=== PATIENT | female | born 1955 | race Caucasian/White ===

== ENCOUNTER → 2019-01-20 | Outpatient (CLI) | payer BC | END | disposition home or self-care (01) | LOC: RAH 09:52 | PROVIDERS: ATTEND Internal Medicine | DX: Z01.811 Encounter for preprocedural respiratory examination (principal); M85.88 Other specified disorders of bone density and structure, other site; M47.819 Spondylosis without myelopathy or radiculopathy, site unspecified | CPT/HCPCS: 71046 ==

== ENCOUNTER → 2020-02-18 | Outpatient (CLI) | payer BC | END | disposition home or self-care (01) | LOC: RAH 11:31 | PROVIDERS: ATTEND Obstetrics & Gynecology | DX: Z12.31 Encounter for screening mammogram for malignant neoplasm of breast (principal); Z98.82 Breast implant status | CPT/HCPCS: 77067 ==

== ENCOUNTER → 2020-05-18 | Outpatient (CLI) | payer BC | END | disposition home or self-care (01) | LOC: RAH 16:07 | PROVIDERS: ATTEND Internal Medicine Critical Care Medicine | DX: Z01.818 Encounter for other preprocedural examination (principal) | CPT/HCPCS: 71046 ==

== ENCOUNTER → 2020-09-23 | Outpatient (CLI) | payer BC | END | disposition home or self-care (01) | LOC: RAH 09:43 | PROVIDERS: ATTEND Internal Medicine | DX: I34.0 Nonrheumatic mitral (valve) insufficiency (principal); E78.00 Pure hypercholesterolemia, unspecified; I10 Essential (primary) hypertension; R55 Syncope and collapse | CPT/HCPCS: 93306; 93356 ==

== ENCOUNTER → 2020-09-23 | Outpatient (CLI) | payer OTHER | END | disposition home or self-care (01) | LOC: RAH 11:38 | PROVIDERS: ATTEND Internal Medicine | DX: Z13.6 Encounter for screening for cardiovascular disorders (principal) | CPT/HCPCS: 75571 ==

== ENCOUNTER → 2020-12-16 | Outpatient (CLI) | payer BC | END | disposition home or self-care (01) | LOC: RAH 12:42 | PROVIDERS: ATTEND Internal Medicine | DX: M51.06 Intervertebral disc disorders with myelopathy, lumbar region (principal); M51.16 Intervertebral disc disorders with radiculopathy, lumbar region; M43.16 Spondylolisthesis, lumbar region; M48.061 Spinal stenosis, lumbar region without neurogenic claudication | CPT/HCPCS: 72148 ==

== ENCOUNTER → 2023-07-11 | Outpatient (CLI) | payer MEDICARE | END | disposition home or self-care (01) | LOC: SHCH 13:00 | PROVIDERS: ATTEND Internal Medicine Cardiovascular Disease | DX: R07.9 Chest pain, unspecified (principal); I10 Essential (primary) hypertension; E11.9 Type 2 diabetes mellitus without complications | CPT/HCPCS: 93306 ==

== ENCOUNTER → 2024-01-30 | Outpatient (CLI) | payer MEDICARE | END | disposition home or self-care (01) | LOC: RAH 09:32 | PROVIDERS: ATTEND Internal Medicine | DX: Z12.31 Encounter for screening mammogram for malignant neoplasm of breast (principal) | CPT/HCPCS: 77067 ==

== ENCOUNTER → 2024-03-12 | Outpatient (CLI) | payer MEDICARE ==
[2024-03-12 14:47] LABS: POTASSIUM 4.4 mmol/L (3.5-5.1)
== END | disposition home or self-care (01) ==
LOC: LAB 13:22
PROVIDERS: ATTEND Internal Medicine Gastroenterology
DX: R10.30 Lower abdominal pain, unspecified (principal)
CPT/HCPCS: 36415; 80048

== ENCOUNTER → 2024-04-03 | Outpatient (CLI) | payer MEDICARE ==
[~2024-04-03] MED LIST: IOHEXOL 350 MG/ML 100ML INFUS..BTL IV ONE
== END | disposition home or self-care (01) ==
LOC: RAH 09:42
PROVIDERS: ATTEND Internal Medicine Gastroenterology
DX: K57.30 Diverticulosis of large intestine without perforation or abscess without bleeding (principal); Z90.49 Acquired absence of other specified parts of digestive tract
CPT/HCPCS: 74177; Q9967

== ENCOUNTER 2025-03-25 07:18 | Observation (INO) | payer MEDICARE ==
[2025-03-24 11:25] VITALS: BP 144/72; PULSE 65; RESP 13; TEMP 97.3
[2025-03-24 11:56] LABS: IMMATURE GRANULOCYTE ABSOLUTE 0.01 K/uL (0-1); NUCLEATED RED BLOOD CELLS 0.0 % (0.0-0.19); PLATELET COUNT (AUTO) 216 K/uL (130-400); RED BLOOD CELL COUNT(AUTO) 4.61 MIL/uL (4.00-5.50); RED CELL DISTRIBUTION WIDTH 14.5 % (11.0-15.5); WHITE BLOOD COUNT (AUTO) 5.9 K/uL (4.8-10.8)
[2025-03-24 12:06] LABS: INR 1.07 (0.85-1.15)
[2025-03-24 12:14] LABS: CREATININE 1.1 mg/dL (0.5-1.0); GLOMERULAR FILTR. RATE CALC 55.0 mL/min (>90); GLUCOSE,RANDOM 96.0 mg/dL (70-105); SODIUM SERUM 145.0 mmol/L (136-145); UREA NITROGEN, BLOOD 15.0 mg/dL (7-18)
--- NOTE | 2025-03-24 12:44 | EKG ---
[facility] Test Date: 2025-03-24 Test Time: 11:11:10 Pat Name: MUSHTAQ CONDE Department: [facility] Room: Gender: F Trouble Shooter: [id number] Requested By: WENDI ODOM Order Number: [id number] Reading MD: Nicole Hutchinson Measurements Intervals [place] Rate: 57 P: 55 NC: 166 QRS: -19 QRSD: 98 T: 25 QT: 441 QTc: 428 Interpretive Statements Sinus rhythm Low voltage, precordial leads No previous ECG available for comparison Electronically Signed On 03-24-2025 16:11:43 CDT by Nicole Hutchinson Please click the below link to view image of tracing.
[2025-03-25] VITALS (24 sets, daily range): BP systolic 119–177; BP diastolic 60–103; PULSE 51–89; RESP 14–20; TEMP 96.8–97.9; O2SAT 94–99
[~2025-03-25] VITALS: Ht 172.7 cm; Wt 82.6 kg
[~2025-03-25 07:18] MED LIST changes: +ATOR40TA69 PO; +CETI10TA57 PO; +CYAN250010 PO; +ESOM40CA66 PO; +FAMO40TA7 PO; -IOHEXOL 350 MG/ML 100ML INFUS..BTL IV ONE; +LEVO50CA5 PO; +METF-444 PO; +MVIT PO; +PREG150C47 PO; +TIRZ7.5P SQ; +VALA100031 PO; +[UNRECOGNIZED DRUG - CODE] PO
[2025-03-25] MEDS: 0.9%NACL 1000ML 1,000 ML IV ONE (07:43)
[2025-03-25] MEDS: FAMOTIDINE 20MG VIAL IV ONE (08:34)
[2025-03-25] MEDS ORDERED: MIDAZOLAM HCL 1 MG/ML 2ML VIAL ONE (09:51)
[2025-03-25] MEDS ORDERED: NEOSTIGMINE METHYLSULFATE 1MG/ML IV ONE (11:48)
[2025-03-25] MEDS ORDERED: GLYCOPYRROLATE 0.2 MG/ML 5 ML VIAL ONE (11:48)
--- NOTE | 2025-03-25 12:06 | OP ---
Operative Note: DATE OF PROCEDURE: 03/25/25 SURGEON: WENDI ODOM MD RESIDENTIAL COUNSELOR: [Please review operative record] ANESTHESIA: [General and local] ANESTHESIOLOGIST/BLANCHING MACHINE OPERATOR: [Please review operative record] PREOPERATIVE DIAGNOSIS: [Diaphragmatic hernia, severe gastroesophageal reflux disease] POSTOPERATIVE DIAGNOSIS: [Same] SYNOPSIS: [3 cm hiatal hernia containing incarcerated cardia. Successfully reduced, primarily repair. Reinforced with the mesh. Anterior partial fund oplication] PROCEDURE: [1. Robotic assisted laparoscopic hiatal hernia repair with mesh reinforcement. 2. Intraoperative EGD. 3. Anterior partial fundoplication] ESTIMATED BLOOD LOSS: [10 cc] INDICATIONS: [69-year-old female with chronic heartburn. Who was found to have a small sized hiatal hernia on EGD and upper GI. Recommendation was given for surgical repair of hiatal hernia with mesh and fundoplication after patient failed to progress with conservative management including dietary changes and m edical therapy. Risks, benefits, alternatives were discussed with the patient. All questions were answered. Patient agreed to proceed with surgical procedure. ] DESCRIPTION OF PROCEDURE: [After appropriate consent was obtained, the patient was transferred the operating room placed in supine position on the operating table. SCDs were placed, preop antibiotics were given. Patient underwent induction of general anesthesia, endotracheal intubation. Patient was then prepped draped in usual sterile fashion. Time-out was performed. Through a left subcostal incision, Veress needle was inserted into the peritoneal cavity. Insufflation was allowed to 12 mmHg. Through an 8 mm infraumbilical incision, laparoscope and trocar were inserted into the peritone al cavity using Optiview. Rest of my trocars were all placed under direct visualization. Veress needle and this vicinity were examined with no signs of injury. Patient was then positioned in the reverse Trendelenburg at 20. Through an epigastric incision, Minh liver retractor was placed in order to retract the left lobe of the liver anteriorly. The da Luis robot was then docked at this time. Abdominal pressure was lowered to 10 mmHg. Upon evaluation of the diaphragmatic hiatus, there was 3 cm diaphragmatic defect containing incarcerated cardia of the stomach. Our dissection began by incising the hepatogastric ligament in a avascular plane. This was followed cephalad towards the diaphragm using a vessel sealer. The hiatal orifice was dissected circumferentially. Right crura was identified and a plane was developed between the right dennis in the right wall of the esophagus. This dissection was accomplished with a combination of both vessel sealer and blunt dissection. On the posterior aspect of the esophageal wall, the left dennis was identified and the dissection was followed towards the left dennis. A few short gastrics were divided in order to fully mobilize the fundus of the stomach. Once the esophagus was fully mobilized, we focused on the intra mediastinal dissection. Again this was accomplished mostly with blunt dissection and very little vessel sealer dissection. Once there was 2 cm of intra-abdominal esophagus, we passed the endoscope through the mouth and into the esophagus and into the stomach. With the endoscope in place, we then proceeded to perform a cruroplasty. This was achieved by approximating the left and right crura on the posterior aspect of the esophagus using two 0 V lock nonabsorbable suture in a running fashion. At the end of the cruroplasty only one instrument was able to pass through the diaphragmatic hiatus. An 8 cm Phasix round mesh with a horseshoe configuration was then used to reinforce the repair. This mesh was sutured in place using 3-0 V lock absorbable suture in a running fashion, and a couple of simple interrupted 2-0 suture. In order to minimize dysphagia, partial anterior fundoplication was performed. The fundus was grasped and moved from left to right anterior to the esophagus. Using 2-0 V lock nonabsorbable suture in a running fashion, the fundus was sutured to the right dennis and diaphragm in order to perform our anterior partial fundoplication. Endoscopy with insufflation revealed no air leak, no stenosis through the GE junction, appropriate reduction of the hiatal hernia, intact wrap. At this time we completed our hiatal hernia repair. The Luis robot was undocked. All instruments and trocars were then removed. Abdomen was deflated. Counts were correct at the end of the case. Skin incisions were closed with 4-0 Monocryl suture. Dermabond was applied over the incision. Patient tolerated the procedure well. Patient was transferred to recovery room in a good condition.] WENDI ODOM MD Mar 25, 2025 12:06
[2025-03-25] MEDS ORDERED: PROCHLORPERAZINE 10MG/2ML INJ IV PRN (12:30)
--- NOTE | 2025-03-25 12:50 | NUR ---
POST OP PT ARRIVED TO THE FLOOR IN STABLE CONDITION, VITAL STABLES. RT NOTIFIED.
[2025-03-25] MEDS: HYDROcod/acetaMINOPHEN 7.5/325 MG 15 ML UDCUP PO PRN (15:59)
[2025-03-25] MEDS: LACTATED RINGERS 1000ML 1,000 ML IV SCH (16:00)
--- NOTE | 2025-03-25 17:48 | NUR ---
Pt is already observed walking unit, self transferring and eating. Pt has eaten twice and denies N/V. Pt reports slight BM and passing of air. Pt reports shoulder pain, Encouraged gait. Provided with heatpacks for pain. Pt denies needs and will DC home no PT intervention required.
[2025-03-25] MEDS: ENOXAPARIN SODIUM 30 MG/0.3 ML SQ SCH (20:27)
[2025-03-25] MEDS: FAMOTIDINE 20MG VIAL IV SCH (20:27)
[2025-03-26] VITALS: BP 139/66; PULSE 62; RESP 20; TEMP 97.9
[2025-03-26 04:00] VITALS: BP 151/71; PULSE 61; RESP 20; TEMP 97.9
[2025-03-26 08:00] VITALS: BP 133/79; PULSE 58; RESP 19; TEMP 98; O2SAT 98
--- NOTE | 2025-03-26 10:27 | NUR ---
DCP:HOME Pt currently lives at home with her Larry Mota [phone]. Pt does not have any DME, home health, or provider services. Pt states that she is able to complete ADLs independently. PCP is Dr. Jason Tony and uses [facility] (short term) and [facility] ([facility]) for any RX needs. At [place] pt will want to go home and family can assist with transportation. Addendum: 03/26/25 at 1029 by PAWAN COLEMAN SS Amended: Links added.
[2025-03-26 12:00] VITALS: BP 123/63; PULSE 53; RESP 19; TEMP 97.6
[2025-03-26 16:00] VITALS: BP 149/71; PULSE 55; RESP 19; TEMP 98.1
--- NOTE | 2025-03-26 17:57 | DS ---
Discharge Summary Assessment Diaphragmatic hernia Hospital Course No acute events overnight. Patient's vital signs have remained stable. Patient has tolerated full liquid diet without any nausea or vomiting. Patient is ambulated without any difficulties. She is passing flatus and has had a small BM. Home care instructions with ER warnings given. Patient is to keep follow- up appointment at [facility] on 03/31/2025. Patient verbalized understan ding and agreement. JIL BOLESP Mar 26, 2025 17:57
== END 2025-03-26 18:25 | disposition home or self-care (01) ==
LOC: DAH 07:18 → DAHIP 07:19 → 3AH 12:50
PROVIDERS: ADMIT Surgery; ATTEND Surgery
DX: K44.9 Diaphragmatic hernia without obstruction or gangrene (principal); K21.9 Gastro-esophageal reflux disease without esophagitis; I10 Essential (primary) hypertension; E11.9 Type 2 diabetes mellitus without complications; E03.9 Hypothyroidism, unspecified; R79.1 Abnormal coagulation profile; Z79.899 Other long term (current) drug therapy; Z98.890 Other specified postprocedural states
CPT/HCPCS: 80048; 85025; 85610; 85730; 86850; 86900; 86901; 36415; 93005; 43282; 96374; 96372 ×2; 82948 ×2; 43235; A6260; G0378 ×30; A4223 ×2; A4600; A4663; J7030 ×2; A4215 ×2; J1308 ×2; J3010 ×2; J0665 ×2; J3490 ×2; J1650 ×2; J2250; J2704; J2405; J2710; J2765; J2371; J0690 ×2; A4649; A4930 ×2; C1781; A4213; A4222; A4221; A4216

== ENCOUNTER → 2025-05-04 | Outpatient (CLI) | payer MEDICARE ==
[~2025-05-04] MED LIST changes: -TIRZ7.5P SQ
--- NOTE | 2025-05-05 15:53 | HMCIMG ---
DIGITAL BILATERAL SCREENING MAMMOGRAM with Tamara views Technique: The digital mammographic examination of both breasts in craniocaudal and mediolateral oblique views along with CAD was obtained. Tamara views of both breasts was obtained in cc and MLO view. History: This is a 69 years year-old female 1, para1 Ab0. Patient has no family history of breast cancer. Patient has no complaint Reference:Prior mammogram from 01/30/2024, 05/03/2021, 04/11/2021 and 02/18/2020 are available for comparison. Breast composition: Breast composition C: The breasts are heterogeneously dense, which may obscure small masses. Finding: The digital mammographic examination of both breasts in craniocaudal and mediolateral oblique view along with CAD demonstrates both breasts submuscular implant which appears to be intact. Tamara views of both breasts to be moderately dense with nodular changes. There are solitary benign macrocalcification seen in both breasts.. There is no evidence of any dendritic mass, cluster microcalcification or architectural distortion. The retromammary fat appears to be normal. IMPRESSION: Unchanged from prior mammography. NO RADIOGRAPHIC EVIDENCE OF MALIGNANT CHANGES. WE WOULD RECOMMEND ANNUAL FOLLOW UP WITH TOMOSYNTHESIS UNLESS OTHERWISE CLINICALLY INDICATED. FINAL ASSESSMENT: ACR: BI-RAD- 2. Benign Finding. NOTE: IF A WORK-UP OF THIS PATIENT LEADS TO A BIOPSY, PLEASE FORWARD A COPY OF THE PATHOLOGY REPORT TO OUR OFFICE REQUIRED BY SA EFFECTIVE MARCH 18, 1994. A NEGATIVE MAMMOGRAM SHOULD NOT PRECLUDE BIOPSY OF A CLINICALLY PALPABLE SUSPICIOUS MASS, 10% OF BREAST CANCERS ARE MAMMOGRAPHICALLY OCCULT. THIS MAMMOGRAPHY FACILITY IS FULLY ACCREDITED BY THE FOOD AND DRUG ADMINISTRATION (FDA). THANK YOU FOR THIS REFERRAL.
== END | disposition home or self-care (01) ==
LOC: RAH 14:20
PROVIDERS: ATTEND Internal Medicine
DX: Z12.31 Encounter for screening mammogram for malignant neoplasm of breast (principal); R92.333 Mammographic heterogeneous density, bilateral breasts; R92.1 Mammographic calcification found on diagnostic imaging of breast
CPT/HCPCS: 77067